=== PATIENT | female | born 1975 | race Caucasian/White ===

== ENCOUNTER 2017-11-09 09:02 | Observation (INO) | payer OTHER ==
[~2017-11-09 09:02] MED LIST: HYDROmorphone 2 MG/ML VIAL IV; LIDOCAINE 1% PF 2 ML VIAL. ID; MORPHINE SULFATE 2 MG/ML DISP.SYRIN. IV; ONDANSETRON PF 4 MG/2 ML VIAL. IV; PROCHLORPERAZINE 10 MG/2 ML VIAL. IV; fentaNYL PF VIAL 100 MCG/2 ML VIAL IV
[2017-11-09] MEDS: IV RINGERS,LACTATED 1000ML 1,000 ML IV (09:34)
[2017-11-09 09:46] LABS: ADD MAN DIFF? NO
[2017-11-09 09:47] LABS: NEG OBC UR NEG; POS OBC UR POS
[2017-11-09 10:07] LABS: BASO # 0.1 x10^3/uL (0.0-0.2); BASO % 1 % (0-3); EOS % 2 % (0-3); HEMOGLOBIN 13.5 g/dL (12.0-15.5); LYMPH # 2.2 x10^3/uL (1.0-4.8); LYMPH % 15 % (24-48); MEAN CORPUSCULAR HEMOGLOBIN 28 pg (25-35); MEAN CORPUSCULAR HGB CONC 32 g/dL (31-37); MEAN CORPUSCULAR VOLUME 88 fL (79-100); MONO % 7 % (0-9); NEUT % 76 % (31-73); PLATELET COUNT 414 x10^3/uL (140-400); RED BLOOD COUNT 4.76 x10^6/uL (3.50-5.40); RED CELL DISTRIBUTION WIDTH 13.2 % (11.5-14.5); WHITE BLOOD COUNT 14.6 x10^3/uL (4.0-11.0)
[2017-11-09] MEDS ORDERED: MIDAZOLAM HCL/PF 2 MG/2 ML VIAL. (10:38)
[2017-11-09] MEDS ORDERED: LIDOCAINE 2% PF Vial for OR 5 ML VIAL. (10:38)
[2017-11-09] MEDS ORDERED: DEXAMETHASONE SOD PHOS 20 MG/5 ML VIAL. (10:38)
[2017-11-09] MEDS ORDERED: ONDANSETRON PF 4 MG/2 ML VIAL. (10:38)
[2017-11-09] MEDS ORDERED: PROPOFOL 20 ML IV (10:38)
[2017-11-09] MEDS ORDERED: fentaNYL PF VIAL 100 MCG/2 ML VIAL ×2 (10:38→11:41)
[2017-11-09] MEDS ORDERED: ROCURONIUM 50 MG/5 ML VIAL. (10:39)
[2017-11-09] MEDS ORDERED: METHYLENE BLUE 1% 10 ML VIAL. (10:43)
[2017-11-09] MEDS ORDERED: SURGICEL HEMOSTAT 4X8 EACH. (10:43)
[2017-11-09] MEDS ORDERED: ISOSULFAN BLUE 50 MG/5 ML VIAL. SQ (10:43)
[2017-11-09] MEDS: ESTROGENS, CONJ VAGINAL CREAM 30GM TUBE. (11:27)
[2017-11-09] MEDS: LIDOCAINE 2%/EPI 1:100,000 20 ML VIAL. (11:27)
[2017-11-09] MEDS: BUPIVAC MPF-EPI 0.5%-1:200000 30 ML VIAL. (11:27)
[2017-11-09] MEDS ORDERED: KETOROLAC 30 MG/ML INJ FOR OR. INJ (11:41)
[2017-11-09] MEDS ORDERED: GLYCOPYRROLATE 1 MG/5 ML VIAL. (11:42)
[2017-11-09] MEDS ORDERED: NEOSTIGMINE METHYLSULFATE 5 MG/5 ML SYRINGE. (11:42)
[2017-11-09] MEDS ORDERED: SEVOFLURANE 61 TO 120 MINUTES. IH (11:57)
[2017-11-09] MEDS ORDERED: diphenhydrAMINE 50 MG/ML VIAL IV (12:45)
[2017-11-09] MEDS ORDERED: SIMETHICONE 80 MG TAB.CHEW PO (12:45)
[2017-11-09] MEDS ORDERED: 0.9 % SODIUM CHLORIDE 10 ML DISP.SYRIN. IV (12:45)
[2017-11-09] MEDS ORDERED: PROCHLORPERAZINE 10 MG/2 ML VIAL. IV (12:45)
[2017-11-09] MEDS ORDERED: ONDANSETRON PF 4 MG/2 ML VIAL. IV (12:45)
[2017-11-09] MEDS ORDERED: diphenhydrAMINE HCL 25 MG CAPSULE PO (12:45)
[2017-11-09] MEDS ORDERED: ZOLPIDEM 5 MG TABLET. PO (12:45)
[2017-11-09] MEDS ORDERED: DEXTROSE 50% 25 GM / 50ML DISP.SYRIN. IV (12:45)
[2017-11-09] MEDS ORDERED: CALCIUM CARBONATE 500 MG TAB.CHEW PO (12:45)
[2017-11-09] MEDS: fentaNYL PF VIAL 100 MCG/2 ML VIAL IV ×2 (13:04→13:29)
[2017-11-09] MEDS: KETOROLAC 30 MG/ML INJ. IV (16:29)
[2017-11-09] MEDS: oxyCODONE/APAP 5/325 1 TAB TABLET PO ×2 (17:54→21:56)
[2017-11-09] MEDS: GABAPENTIN 300 MG CAPSULE. PO (22:00)
[2017-11-10] MEDS: oxyCODONE/APAP 5/325 1 TAB TABLET PO ×3 (04:37→13:40)
[2017-11-10] MEDS: GABAPENTIN 300 MG CAPSULE. PO ×2 (04:38→13:40)
[2017-11-10 06:02] LABS: BASO # 0.1 x10^3/uL (0.0-0.2); BASO % 0 % (0-3); EOS % 0 % (0-3); HEMATOCRIT 34.7 % (36.0-47.0); HEMOGLOBIN 11.4 g/dL (12.0-15.5); LYMPH # 1.9 x10^3/uL (1.0-4.8); LYMPH % 9 % (24-48); MEAN CORPUSCULAR HEMOGLOBIN 29 pg (25-35); MEAN CORPUSCULAR HGB CONC 33 g/dL (31-37); MEAN CORPUSCULAR VOLUME 89 fL (79-100); MONO % 7 % (0-9); NEUT % 84 % (31-73); PLATELET COUNT 344 x10^3/uL (140-400); RED BLOOD COUNT 3.89 x10^6/uL (3.50-5.40); RED CELL DISTRIBUTION WIDTH 13.7 % (11.5-14.5); WHITE BLOOD COUNT 21.9 x10^3/uL (4.0-11.0)
[2017-11-10 06:10] LABS: ADD MAN DIFF? YES
[2017-11-10 10:43] LABS: PLT ESTIMATE ADEQUATE (ADEQUATE)
[2017-11-10] MEDS ORDERED: oxyCODONE/APAP 5/325 1 TAB TABLET PO (13:30)
[2017-11-10] MEDS ORDERED: GABAPENTIN 300 MG CAPSULE. PO (14:00)
== END 2017-11-10 15:35 | disposition home or self-care (01) ==
LOC: SURG 09:02 → 3 NORTH 12:36
DX: D25.9 Leiomyoma of uterus, unspecified (principal); N80.9 Endometriosis, unspecified; N92.0 Excessive and frequent menstruation with regular cycle; N72 Inflammatory disease of cervix uteri; N80.0 Endometriosis of uterus; N83.02 Follicular cyst of left ovary; N83.01 Follicular cyst of right ovary; N84.0 Polyp of corpus uteri; K66.0 Peritoneal adhesions (postprocedural) (postinfection)
CPT/HCPCS: 36415; 81025; 85007; 85025; 86850; 86900; 86901; 88307; 96374; A4215; G0378; G0379; J1100; J1885; J2250; J2405; J2704; J2710; J3010; J3490; J7030; J7120; Q9968